=== PATIENT | female | born 1960 | race Caucasian/White ===

== ENCOUNTER → 2018-04-21 | Outpatient (CLI) | payer OTHER ==
--- NOTE | 2018-04-21 17:36 | Diagnostic Imaging Report ---
INDICATION: Low back pain. Lumbar spine. FINDINGS: AP and lateral views of the lumbar spine show normal vertebral body height and alignment. There is slight disc space narrowing at L5-S1. Other disc spaces are normal. IMPRESSION: Minimal degenerative disc changes at L5-S1. Dictated by: Dictated on workstation # [id number]
--- NOTE | 2018-04-21 19:00 | Diagnostic Imaging Report ---
INDICATION: Left hip pain AP and lateral views of the sacrum and coccyx show no fracture or dislocation. IMPRESSION: Negative sacrum and coccyx Dictated by: Dictated on workstation # [id number]
== END ==
LOC: RAD 16:37
PROVIDERS: ATTEND Family Medicine
DX: M54.5 Low back pain (principal); M25.552 Pain in left hip
CPT/HCPCS: 72100; 72220

== ENCOUNTER → 2018-09-28 | Outpatient (CLI) | payer OTHER ==
--- NOTE | 2018-09-28 17:02 | Diagnostic Imaging Report ---
INDICATION: Posterior right rib pain. TIME OF EXAMINATION: 5:16 PM. COMPARISON: 02/22/2015. FINDINGS: There are surgical clips in the left axilla. The heart size is normal. The lungs are clear. No effusion is seen. No pneumothorax is identified. The pulmonary vascularity is unremarkable. The visualized ribs appear unremarkable. IMPRESSION: No acute feature is detected. Dictated by: Dictated on workstation # [id number]
== END ==
LOC: RAD 16:23
PROVIDERS: ATTEND Nurse Practitioner Family
DX: R07.81 Pleurodynia (principal)
CPT/HCPCS: 71046

== ENCOUNTER → 2019-10-20 | Outpatient (CLI) | payer BC ==
--- NOTE | 2019-10-20 12:39 | Diagnostic Imaging Report ---
INDICATION: Left-sided rib pain post injury AP and oblique views of the left ribs are obtained. There is no underlying pneumothorax or infiltrate or pleural fluid. Views of the left ribs demonstrate no evidence of fracture or acute bony abnormality. There are surgical clips over the left axilla. IMPRESSION: Negative left ribs. Dictated by: Dictated on workstation # [id number]
== END ==
LOC: RAD 11:46
PROVIDERS: ATTEND Nurse Practitioner Family
DX: S29.9XXA Unspecified injury of thorax, initial encounter (principal)
CPT/HCPCS: 71100

== ENCOUNTER → 2021-05-07 | Outpatient (CLI) | payer BC ==
--- NOTE | 2021-05-07 11:11 | Diagnostic Imaging Report ---
EXAMINATION: Left wrist at 9:47 AM INDICATION: Wrist pain 3 views were obtained. There are no prior studies available for comparison. There is no fracture, dislocation or acute bony abnormality evident. There is a well-circumscribed 7 mm calcific density interposed between the tip of the ulnar styloid and the triquetrum. I suspect this finding is a sequela of prior trauma. There is mild narrowing of the radiocarpal joint. The soft tissues are unremarkable. IMPRESSION: 1. There is no evidence for an acute bony abnormality. 2. The calcific density interposed between the ulnar styloid and triquetrum is most likely a sequela of prior trauma. Dictated by: Dictated on workstation # [id number]
== END ==
LOC: RAD 08:59
PROVIDERS: ATTEND Family Medicine
DX: M25.532 Pain in left wrist (principal)
CPT/HCPCS: 73110

== ENCOUNTER → 2021-08-02 | Outpatient (CLI) | payer OTHER ==
--- NOTE | 2021-08-02 07:46 | Diagnostic Imaging Report ---
PROCEDURE: CT head without contrast. TECHNIQUE: Multiple contiguous axial images were obtained through the brain without the use of intravenous contrast. Auto Exposure Controls were utilized during the CT exam to meet ALARA standards for radiation dose reduction. INDICATION: Headache. COMPARISON: None FINDINGS: Ventricles normal in size, shape and position. There is no midline shift or mass effect. There is no hemorrhage or evidence of acute ischemia. No extra-axial fluid collection or mass is seen. The bony calvarium, paranasal sinuses and mastoids are clear. IMPRESSION: Negative CT head. Dictated by: Dictated on workstation # [id number]
== END ==
LOC: RAD 07:45
PROVIDERS: ATTEND Family Medicine
DX: R51.9 Headache, unspecified (principal)
CPT/HCPCS: 70450